=== PATIENT | female | born 1965 | race Caucasian/White ===

== ENCOUNTER 2024-02-24 08:59 | Emergency (ER) | payer OTHER ==
[~2024-02-24] VITALS: Ht 160 cm; Wt 77.1 kg
[2024-02-24] MEDS ORDERED: ALBU2.5V10 NEB ×2 (09:11→10:16)
[2024-02-24] MEDS ORDERED: ADV250INH INH (09:11)
[2024-02-24] MEDS: predniSONE 20 MG TAB PO ONE (10:09)
[2024-02-24] MEDS: IPRATROPIUM 0.5MG/ALBUTEROL 2.5MG INH SOL UD 3ML (DUONEB) NEB ONE (10:15)
[2024-02-24] MEDS ORDERED: PRED20TA PO (10:16)
[2024-02-24 11:31] VITALS: BP 165/79; TEMP 99.5; O2SAT 100
== END 2024-02-24 11:32 | disposition home or self-care (01) ==
LOC: M ED 08:59
DX: J45.909 Unspecified asthma, uncomplicated (principal); B97.4 Respiratory syncytial virus as the cause of diseases classified elsewhere; I25.2 Old myocardial infarction; I10 Essential (primary) hypertension; E03.9 Hypothyroidism, unspecified; Z88.2 Allergy status to sulfonamides; Z91.09 Other allergy status, other than to drugs and biological substances; Z79.51 Long term (current) use of inhaled steroids; Z79.52 Long term (current) use of systemic steroids
CPT/HCPCS: 71045; 87486; 87581; 87633; 87798; 93005; 94640; 99284; J7512